=== PATIENT | female | born 1950 | race Caucasian/White ===

== ENCOUNTER 2016-07-03 15:30 | Emergency (ER) | payer OTHER ==
[~2016-07-03] VITALS: Ht 154.9 cm; Wt 60.0 kg
[~2016-07-03 15:30] MED LIST: ESCI20TA PO; LOSA50TA2 PO; PANT20TA3 PO; TEN25 PO; ZOC20 PO
[2016-07-03 15:32] VITALS: Ht 154.9 cm; Wt 60.0 kg
[2016-07-03] MEDS ORDERED: SOD CHLORIDE 0.9% 500 ML IV STA (16:25)
[2016-07-03] MEDS ORDERED: ONDANSETRON 4 MG INJ IV STA (16:32)
[2016-07-03] MEDS ORDERED: morphine 4 MG/ML VIAL IV STA ×2 (16:32→18:41)
[2016-07-03 16:45] LABS: ADD SCAN DIFF NO
[2016-07-03 16:52] LABS: BASOPHIL # 0.1 10^3/ul (0.0-0.1); BASOPHILS % 0.5 % (0.0-2.0); EOSINOPHILS # 0.1 10^3/ul (0.0-0.5); HEMATOCRIT 38.4 % (37.0-47.0); HEMOGLOBIN 13.4 g/dl (12.0-16.0); LYMPHOCYTES # 2.8 10^3/ul (0.8-2.9); LYMPHOCYTES % 25.6 % (15.0-51.0); MEAN CORPUSCULAR HEMOGLOBIN 30.5 pg (29.0-33.0); MEAN CORPUSCULAR HGB CONC 34.9 g/dl (32.0-37.0); MEAN CORPUSCULAR VOLUME 87.3 fl (82.0-101.0); MEAN PLATELET VOLUME 12.5 fl (7.4-10.4); MONOCYTES % 9.3 % (0.0-11.0); NEUTROPHIL # 6.9 10^3/ul (1.6-7.5); NEUTROPHILS % 63.3 % (39.0-77.0); PLATELET COUNT 225 10^3/UL (140-415); RED CELL DISTRIBUTION WIDTH 12.9 % (11.5-14.5); WHITE BLOOD COUNT 10.9 10^3/ul (4.8-10.8)
[2016-07-03 16:55] LABS: ALBUMIN 4.4 g/dl (3.3-4.9); CHLORIDE 103 mmol/L (97-110)
[2016-07-03 16:56] LABS: INR 0.93; POTASSIUM 3.8 mmol/L (3.5-5.1); PROTIME 12.5 Sec (12.2-14.2); SODIUM 144 mmol/L (135-144)
[2016-07-03 16:57] LABS: PARTIAL THROMBOPLASTIN TIME 31.2 Sec (25.0-35.0)
[2016-07-03 16:58] LABS: ALBUMIN/GLOBULIN RATIO 1.18; ALKALINE PHOSPHATASE 129 IU/L (42-121); ANION GAP 18 (8-16); ASPARTATE AMINO TRANSFERASE 34 IU/L (15-46); BILIRUBIN,INDIRECT 0.1 mg/dl (0-1.1); BILIRUBIN,TOTAL 0.1 mg/dl (0.2-1.3); BLOOD UREA NITROGEN 12 mg/dl (7-20); CARBON DIOXIDE 27 mmol/L (21-31); CREATININE 0.72 mg/dl (0.44-1.00); TOTAL PROTEIN 8.1 g/dl (6.1-8.1)
--- NOTE | 2016-07-03 16:58 | RADRPT ---
PROCEDURE: XR Chest 1 View. CLINICAL INDICATION: Abnormal breath sounds, abdominal pain TECHNIQUE: AP view of the chest were obtained. COMPARISON: None. FINDINGS: The cardiomediastinal silhouette is within normal limits. Mild elevation right hemidiaphragm is iden tified. No consolidations are identified. No pneumothorax is seen. Osseous structures are intact. IMPRESSION: Mild elevation right hemidiaphragm. Clear lungs. RPTAT: AA .Lucas Zhu MD, Date Time Electronically viewed and signed by .Lucas Zhu MD, on 07/03/2016 16:58 .P/
[2016-07-03 16:59] LABS: ALANINE AMINOTRANSFERASE 43 IU/L (13-69); GLUCOSE 130 mg/dl (70-220)
[2016-07-03 17:13] LABS: TROPONIN-I < 0.012 ng/ml (0.00-0.12)
--- NOTE | 2016-07-03 17:24 | RADRPT ---
PROCEDURE: Right Upper Quadrant Ultrasound. CLINICAL INDICATION: epigastric Abdominal Pain, eval for acute cholecystitis TECHNIQUE: Multiple real-time images were acquired of the patient's right upper quadrant abdomen a nd retroperitoneum utilizing a high resolution transducer. COMPARISON: None FINDINGS: The liver measures 16.5 cm, and demonstrates diffusely increased echogenicity. The main portal vein is patent with proper directional flow. There is no intrahepatic biliary ductal dilatation. The extr ahepatic common bile duct measures 3 mm. There is cholelithiasis. There is no gallbladder wall thickening or pericholecystic fluid. The gall bladder is contracted. The visualized pancreas is unremarkable. The right kidney measures 10.1 x 4.5 x 4.3 cm and demonstrates normal echotexture. There is no right renal calculus or hydronephrosis. The visualized abdominal aorta and IVC are grossly unremarkable. IMPRESSION: Mild hepatomegaly with severe fatty infiltration. Contracted gallbladder with cholelithiasis and no evidence of acute cholecystitis. Normal CBD. RPTAT: EE Physician Siri Date Time Electronically viewed and signed by Physician Siri on 07/03/2016 17:24 /
[2016-07-03] MEDS ORDERED: FAMOTIDINE 20 MG TAB PO STA (17:27)
[2016-07-03] MEDS ORDERED: LIDOCAINE/MYLANTA 40 ML BTL PO STA (17:27)
[2016-07-03] MEDS ORDERED: LOSA100T7 PO (18:24)
[2016-07-03] MEDS ORDERED: PANT40TA4 PO (18:25)
[2016-07-03] MEDS ORDERED: PRAV40TA76 PO (18:25)
[2016-07-03] MEDS ORDERED: AMLO-147 PO (18:25)
[2016-07-03] MEDS ORDERED: CETI-240 PO (18:26)
[2016-07-03] MEDS ORDERED: CHOL20003 PO (18:28)
--- NOTE | 2016-07-03 19:54 | RADRPT ---
PROCEDURE: CT Abdomen and Pelvis without contrast. CLINICAL INDICATION: Severe epigastric pain. TECHNIQUE: A CT scan of the abdomen and pelvis was performed without intravenous contrast. Parisi l and sagittal reformatted images were generated. Images were reviewed on a high-resolution PACS wor kstation. CTDIvol: 7.39 mGy. DLP: 375.28 mGy-cm. One or more of the following dose reduction techniques were used: - Automated exposure control. - Adjustment of the mA and/or kV according to patient size. - Use of iterative reconstruction technique. COMPARISON: Abdominal ultrasound dated 07/03/2016. FINDINGS: The lung bases are clear. Evaluation of the abdominal and pelvic viscera is limited by the lack of oral and intravenous contra st. The liver is mildly enlarged (17.9 cm) and diffusely hypodense, consistent with fatty infiltration. Office cholelithiasis The common bile duct is not dilated. The spleen is not enlarged. No pancreati c lesion is identified and there is no pancreatic ductal dilatation. The adrenal glands are unremark able. The kidneys are normal in size. There is no perinephric fat stranding. No hydronephrosis is seen. No urinary stone is identified. The small and large bowel are normal in caliber. There is no bowel wall thickening. There is minimal colonic diverticulosis. The appendix is normal. The urinary bladder is unremarkable. The patient is status post hysterectomy. No adnexal mass is se en. There is trace pelvic ascites. No lymphadenopathy is identified. No pneumoperitoneum is seen. There are no arterial calcifications. No suspicious osseous lesion is idenitified. IMPRESSION: 1. No inflammation, mass, or lymphadenopathy. 2. Normal appendix. 3. No obstructive uropathy or urinary stone. 4. Fatty infiltration of the liver and mild hepatomegaly. 5. Status post hysterectomy. 6. Trace pelvic ascites, nonspecific. RPTAT: HTAR .Prieto Coley MD, Date Time Electronically viewed and signed by .Prieto Coley MD, on 07/03/2016 19:54 .R/
[2016-07-03 20:23] LABS: ADD UMIC YES; URINE BILIRUBIN (Dip) NEGATIVE (NEGATIVE); URINE BLOOD (Dip) 1+ (NEGATIVE); URINE COLOR LT. YELLOW (YELLOW); URINE GLUCOSE (Dip) NEGATIVE (NEGATIVE); URINE KETONES (Dip) NEGATIVE (NEGATIVE); URINE LEUKOCYTE ESTERASE (Dip) NEGATIVE (NEGATIVE); URINE NITRITE (Dip) NEGATIVE (NEGATIVE); URINE TOTAL PROTEIN (Dip) NEGATIVE (NEGATIVE); URINE UROBILINOGEN (Dip) 0.2 E.U./dL (0.1-1.0)
[2016-07-03 20:37] VITALS: BP 165/85; PULSE 77; RESP 18; TEMP 98.2
[2016-07-03] MEDS ORDERED: METO10TA92 PO (20:37)
[2016-07-03 20:47] LABS: SQUAMOUS EPITHELIAL CELL,UR FEW
--- NOTE | 2016-07-03 21:37 | ERD ---
ER Documentation Chief Complaint Date/Time DATE: 07/03/16 TIME: 21:12 Chief Complaint AP, HX GALLSTONES HPI 66-year-old female with a history of rheumatoid arthritis, hypertension, hyperlipidemia presenting with epigastric pain since this afternoon after eating. She describes as a sharp, aching pain, nonradiating, 9 out of 10. Pain is mostly constant but intermittently worse. She has associated nausea without vomiting. No fevers, chills, constipation, diarrhea, dysuria. No chest pain or shortness of breath. ROS All systems reviewed and are negative except as per history of present illness. Medications Home Meds Active Scripts Metoclopramide* (Reglan*) 10 Mg Tablet, 10 MG PO Q6 Y for NAUSEA AND/OR VOMITING , #10 TAB Prov:ARSENIO BILL MD 07/03/16 Reported Medications Cholecalciferol (Vitamin D3) (VITAMIN D-3) 2,000 Unit Capsule, 2000 UNIT PO BID , CAP 07/03/16 Cetirizine Hcl* (Cetirizine Hcl*) 10 Mg Tablet, 10 MG PO DAILY, #30 TAB 07/03/16 Amlodipine Besylate* (Amlodipine Besylate*) 10 Mg Tablet, 10 MG PO DAILY, #30 TAB 07/03/16 Pravastatin Sodium* (Pravastatin Sodium*) 40 Mg Tablet, 40 MG PO HS, TAB 07/03/16 Pantoprazole* (Pantoprazole*) 40 Mg Tablet.dr, 40 MG PO DAILY, TAB 07/03/16 Losartan Potassium* (Losartan Potassium*) 100 Mg Tablet, 100 MG PO DAILY, TAB 07/03/16 Discontinued Reported Medications Escitalopram Oxalate* (Lexapro*) 20 Mg Tablet, 20 MG PO DAILY 06/26/12 Losartan Potassium* (Cozaar*) 50 Mg Tablet, 50 MG PO DAILY 06/26/12 Pantoprazole* (Pantoprazole*) 20 Mg Tablet.dr, 20 MG PO DAILY 06/26/12 Atenolol (Tenormin) 25 Mg Tab, 25 MG PO DAILY 06/26/12 Simvastatin (Simvastatin) 20 Mg Tablet, 20 MG PO DAILY 06/26/12 Allergies Allergies: Coded Allergies: No Known Allergy (Unverified , 07/03/16) PMhx/Soc History of Surgery: No Anesthesia Reaction: No Hx Neurological Disorder: No Hx Respiratory Disorders: No Hx Cardiac Disorders: Yes (HTN,HIGH CHOLESTEROL) Hx Psychiatric Problems: Yes (DEPPRESSION) Hx Miscellaneous Medical Probl: Yes (Gastritis, rheumatoid arthritis) Hx Alcohol Use: No Hx Substance Use: No Hx Tobacco Use: No Smoking Status: Never smoker FmHx Family History: No diabetes Physical Exam Vitals Vital Signs Date Time Temp Pulse Resp B/P Pulse Ox O2 Delivery O2 Flow Rate FiO2 07/03/16 20:37 98.2 77 18 165/85 98 Room Air 07/03/16 19:27 99.1 72 18 147/78 98 Room Air 07/03/16 15:32 100.0 76 16 167/74 98 Physical Exam Const: No distress, nontoxic Head: Atraumatic Eyes: Normal Conjunctiva ENT: Normal External Ears, Nose and Mouth. Neck: Full range of motion..~ No meningismus. Resp: Clear to auscultation bilaterally Cardio: Regular rate and rhythm, no murmurs Abd: Soft, mild to moderate epigastric tenderness, no rebound or guarding, non distended. Normal bowel sounds Skin: No petechiae or rashes Back: No midline or flank tenderness Ext: No cyanosis, or edema Neur: Awake and alert Psych: Normal Mood and Affect Result Diagram: 07/03/16 1635 07/03/16 1635 Results 24 hrs Laboratory Tests Test 07/03/16 16:35 07/03/16 17:30 Activated Partial Thromboplast Time 31.2Sec Alanine Aminotransferase (ALT/SGPT) 43IU/L Albumin 4.4g/dl Albumin/Globulin Ratio 1.18 Alkaline Phosphatase 129IU/L Anion Gap 18 Aspartate Amino Transf (AST/SGOT) 34IU/L Basophils # 0.110^3/ul Basophils % 0.5% Blood Urea Nitrogen 12mg/dl Calcium Level 9.0mg/dl Carbon Dioxide Level 27mmol/L Chloride Level 103mmol/L Creatinine 0.72mg/dl Direct Bilirubin 0.00mg/dl Eosinophils # 0.110^3/ul Eosinophils % 1.0% Globulin 3.70g/dl Glucose Level 130mg/dl Hematocrit 38.4% Hemoglobin 13.4g/dl INR International Normalized Ratio 0.93 Indirect Bilirubin 0.1mg/dl Lipase 55U/L Lymphocytes # 2.810^3/ul Lymphocytes % 25.6% Mean Corpuscular Hemoglobin 30.5pg Mean Corpuscular Hemoglobin Concent 34.9g/dl Mean Corpuscular Volume 87.3fl Mean Platelet Volume 12.5fl Monocytes # 1.010^3/ul Monocytes % 9.3% Neutrophils # 6.910^3/ul Neutrophils % 63.3% Nucleated Red Blood Cells # 0.010^3/ul Nucleated Red Blood Cells % 0.0/100WBC Platelet Count 31931^3/UL Potassium Level 3.8mmol/L Prothrombin Time 12.5Sec Prothrombin Time Ratio 1.0 Red Blood Count 4.4010^6/ul Red Cell Distribution Width 12.9% Sodium Level 144mmol/L Total Bilirubin 0.1mg/dl Total Protein 8.1g/dl Troponin I < 0.012ng/ml White Blood Count 10.910^3/ul Urine Bilirubin NEGATIVE Urine Clarity CLEAR Urine Color LT. YELLOW Urine Glucose NEGATIVE% Urine Hemoglobin 1+ Urine Ketones NEGATIVE Urine Leukocyte Esterase NEGATIVE Urine Microscopic RBC 2-5/HPF Urine Microscopic WBC 0-2/HPF Urine Nitrite NEGATIVE Urine Specific [place] 1.015 Urine Squamous Epithelial Cells FEW Urine Total Protein NEGATIVE Urine Urobilinogen 0.2 E.U./dL Urine pH 6.0 Current Medications Medications (Trade) Dose Ordered Sig/Ashu Route PRN Reason Start Time Stop Time Status Last Admin Dose Admin Sodium Chloride (NS) 500 ml @ 500 mls/hr Q1H STAT IV 07/03/16 16:25 07/03/16 17:24 DC 07/03/16 16:40 Morphine Sulfate (morphine) 4 mg ONCE STAT IV 07/03/16 16:32 07/03/16 16:34 DC 07/03/16 16:40 Ondansetron HCl (Zofran Inj) 4 mg ONCE STAT IV 07/03/16 16:32 07/03/16 16:34 DC 07/03/16 16:40 Famotidine (Pepcid) 20 mg ONCE STAT PO 07/03/16 17:27 07/03/16 17:28 DC 07/03/16 17:32 Miscellaneous Medication (Gi Cocktail (2)) 40 ml ONCE STAT PO 07/03/16 17:27 07/03/16 17:28 DC 07/03/16 17:32 Morphine Sulfate (morphine) 4 mg ONCE STAT IV 07/03/16 18:41 3/10/17 18:42 DC 07/03/16 18:54 Procedures/MDM EMERGENT LABS AND DIAGNOSTIC STUDIES: Lab Results above were reviewed and interpreted by me. Blood work was unremarkable 12-lead EKG was interpreted by Diony Bill MD: Normal Sinus Rhythm with ventricular rate of 73 beats per minute Normal axis Normal intervals No acute ST or T wave changes suggestive of acute ischemia or STEMI. Radiology Results as interpreted by Radiology below were reviewed by Alejandro Bill MD: Ultrasound of the right upper quadrant showed a contracted gallbladder with cholelithiasis and no evidence of acute cholecystitis. Normal CBD. Chest x-ray was unremarkable without any acute abnormalities CT of the abdomen and pelvis did not show any acute abnormalities other than trace nonspecific pelvic ascites Initial Nursing notes reviewed. Previous Medical Records requested via the Electronic Health Record. EMERGENCY DEPARTMENT COURSE / MEDICAL DECISION MAKING: Patient is presenting with epigastric pain. Her vitals are all within normal limits and she is afebrile and appears nontoxic. Differential includes but is not limited to biliary colic, biliary obstruction, acute cholecystitis, pancreatitis, hepatitis, lower lobe pneumonia, gastritis, colitis, cardiac pathology, aortic dissection, ureterolithiasis, pyelonephritis. Labs were ordered to evaluate for above and were normal. Chest Xray ordered to evaluate for pneumonia and was read as normal by radiology. Ultrasound of the abdomen ordered to evaluate gallbladder and showed no acute pathology. CT of the abdomen /pelvis was ordered and showed no acute pathology. I have a low suspicion for aortic dissection or a cardiac etiology for her pain. The patient was treated with a GI cocktail and morphine and Zofran IV with significant improvement in her symptoms. She was able to tolerate liquids prior to discharge. I believe she is stable for discharge with continued outpatient follow-up with her primary care physician. I will discharge her with Reglan for her nausea. She is already on Protonix for her gastritis. I recommended she ask her primary care doctor for referral to gastroenterology for an endoscopy which she has not had. Return precautions were given. Patient was discharged in stable condition Patient's blood pressure was elevated (>120/80) but appears stable without evidence of hypertensive emergency or urgency. The patient was counseled about the risks of hypertension and urged to pursue outpatient monitoring and therapy within a week with their primary care physician. Departure Diagnosis: Primary Impression: Epigastric pain Condition: Stable Patient Instructions: Epigastric Pain (Uncertain Cause) Additional Instructions: Scottie precious nohelia con lackey medico primario en 2 french. Regresa a la margoth de emergencia si lackey dolor esta empeorando. ARSENIO BILL MD Jul 03, 2016 21:22
== END 2016-07-03 21:28 | disposition home or self-care (01) ==
LOC: E/R 15:30
DX: R10.13 Epigastric pain (principal); I10 Essential (primary) hypertension; R11.0 Nausea
CPT/HCPCS: 36415; 71010; 74176; 76705; 80053; 81001; 81003; 83690; 84484; 85025; 85610; 85730; 96361; 96374; 96375; 96376; 99285; J2270; J2405; J7040; 93005